=== PATIENT | female | born 1965 | race Caucasian/White ===

== ENCOUNTER 2018-01-17 11:14 | Emergency (ER) | payer BC ==
[~2018-01-17] VITALS: Ht 172.7 cm; Wt 70.0 kg
[2018-01-17 11:31] VITALS: BP 129/89; PULSE 88; RESP 16; TEMP 99.2; O2SAT 97
[2018-01-17] MEDS ORDERED: SODIUM CHLOR 0.9% 1000 ML INJ 1,000 ML IV SCH (11:52)
[2018-01-17] MEDS ORDERED: ONDANSETRON HCL 4 MG/2 ML VIAL IVP ONE (12:00)
[2018-01-17] MEDS ORDERED: KETOROLAC TROMETHAMINE 30 MG/ML (IVP) VIAL IVP ONE (12:00)
[2018-01-17] MEDS ORDERED: SODIUM CHLORIDE 0.9% FLUSH 10 ML FLUSH IV FLUSH PRN (12:00)
--- NOTE | 2018-01-17 12:19 | PD ---
HPI Chief Complaint: Abdominal Pain Time Seen by Provider: 11:46 Travel History International Travel<30 days: No Contact w/Intl Traveler<30days: No Traveled to known affect area: No History of Present Illness HPI Patient states that over the past month she has had is epigastric region discomfort, that after onset and radiates throughout her entire abdomen. Patient states that associated with this epigastric area pain, she develops nausea and vomiting helps to relieve her pain. Patient denies any aggravating factors. Patient also denies any associated factors such as fever, rash, headache, neck pain, chest pain, flank pain, cough, runny nose, or sore throat. No primary care Patient states allergy to penicillin amoxicillin, she developed hives to it Past medical history significant for PFSH Past Medical History ?: Not LMP: KATHIE Menopausal: Yes Past Surgical History Section: Yes Tonsillectomy: Yes Social History Alcohol Use: No Tobacco Use: Yes Substance Use: No Allergies-Medications (Allergen,Severity, Reaction): Coded Allergies: amoxicillin (Unverified Allergy, Severe, 01/17/18) penicillin G (Unverified Allergy, Severe, 01/17/18) Reported Meds & Prescriptions Reported Meds & Active Scripts Active No Active Prescriptions or Reported Medications Review of Systems General / Constitutional: No: Fever Eyes: No: Visual changes HENT: No: Headaches Cardiovascular: No: Chest Pain or Discomfort Respiratory: No: Shortness of Breath Gastrointestinal: Positive: Nausea, Abdominal Pain Genitourinary: No: Dysuria Musculoskeletal: No: Pain Skin: No Rash Neurologic: No: Weakness Psychiatric: No: Depression Endocrine: No: Polydipsia Hematologic/Lymphatic: No: Easy Bruising Physical Exam Narrative GENERAL: SKIN: Warm and dry. HEAD: Atraumatic. Normocephalic. EYES: Pupils equal and round. No scleral icterus. No injection or drainage. ENT: No nasal bleeding or discharge. Mucous membranes pink and moist. NECK: Trachea midline. No JVD. CARDIOVASCULAR: Regular rate and rhythm. RESPIRATORY: No accessory muscle use. Clear to auscultation. Breath sounds equal bilaterally. GASTROINTESTINAL: Abdomen soft, non-tender, nondistended. mild epigastric ttpercussion, but no rigidity/rebound/guarding MUSCULOSKELETAL: Extremities without clubbing, cyanosis, or edema. No obvious deformities. NEUROLOGICAL: Awake and alert. No obvious cranial nerve deficits. Motor grossly within normal limits. Five out of 5 muscle strength in the arms and legs. Normal speech. PSYCHIATRIC: Appropriate mood and affect; insight and judgment normal. Data Data Last Documented VS Vital Signs Date Time Temp Pulse Resp B/P (MAP) Pulse Ox O2 Delivery O2 Flow Rate FiO2 01/17/18 16:16 60 18 101/59 (73) 95 01/17/18 11:31 99.2 Orders Orders Complete Blood Count With Diff (01/17/18 11:52) Comprehensive Metabolic Panel (01/17/18 11:52) Lipase (01/17/18 11:52) Urinalysis - C+S If Indicated (01/17/18 11:52) Ct Abd/Pel W/O Iv Contrast (01/17/18 11:52) Iv Access Insert/Monitor (01/17/18 11:52) Ecg Monitoring (01/17/18 11:52) Oximetry (01/17/18 11:52) NPO (01/17/18 11:52) Ondansetron Inj (Zofran Inj) (01/17/18 12:00) Sodium Chlor 0.9% 1000 Ml Inj (Ns 1000 M (01/17/18 11:52) Sodium Chloride 0.9% Flush (Ns Flush) (01/17/18 12:00) Ketorolac Inj (Toradol Inj) (01/17/18 12:00) Labs Laboratory Tests Test 01/17/18 12:09 White Blood Count 12.3 TH/MM3 Red Blood Count 5.52 MIL/MM3 Hemoglobin 16.5 GM/DL Hematocrit 48.0 % Mean Corpuscular Volume 86.9 FL Mean Corpuscular Hemoglobin 29.9 PG Mean Corpuscular Hemoglobin Concent 34.4 % Red Cell Distribution Width 12.5 % Platelet Count 289 TH/MM3 Mean Platelet Volume 7.7 FL Neutrophils (%) (Auto) 72.4 % Lymphocytes (%) (Auto) 19.3 % Monocytes (%) (Auto) 4.5 % Eosinophils (%) (Auto) 3.1 % Basophils (%) (Auto) 0.7 % Neutrophils # (Auto) 8.9 TH/MM3 Lymphocytes # (Auto) 2.4 TH/MM3 Monocytes # (Auto) 0.6 TH/MM3 Eosinophils # (Auto) 0.4 TH/MM3 Basophils # (Auto) 0.1 TH/MM3 CBC Comment DIFF FINAL Differential Comment Urine Color YELLOW Urine Turbidity CLEAR Urine pH 6.0 Urine Specific [place] 1.014 Urine Protein NEG mg/dL Urine Glucose (UA) NEG mg/dL Urine Ketones NEG mg/dL Urine Occult Blood SMALL Urine Nitrite NEG Urine Bilirubin NEG Urine Urobilinogen LESS THAN 2.0 MG/DL Urine Leukocyte Esterase NEG Urine RBC 3 /hpf Urine WBC LESS THAN 1 /hpf Urine Squamous Epithelial Cells 2 /hpf Urine Mucus FEW /lpf Microscopic Urinalysis Comment CULT NOT INDICATED Blood Urea Nitrogen 8 MG/DL Creatinine 0.65 MG/DL Random Glucose 104 MG/DL Total Protein 7.3 GM/DL Albumin 3.8 GM/DL Calcium Level 9.1 MG/DL Alkaline Phosphatase 87 U/L Aspartate Amino Transf (AST/SGOT) 18 U/L Alanine Aminotransferase (ALT/SGPT) 22 U/L Total Bilirubin 0.5 MG/DL Sodium Level 138 MEQ/L Potassium Level 3.9 MEQ/L Chloride Level 107 MEQ/L Carbon Dioxide Level 23.0 MEQ/L Anion Gap 8 MEQ/L Estimat Glomerular Filtration Rate 95 ML/MIN Lipase 124 U/L [facility] Medical Decision Making Medical Screen Exam Complete: Yes Emergency Medical Condition: Yes Medical Record Reviewed: Yes Differential Diagnosis Gastroenteritis versus radiculitis versus colitis versus bronchitis versus hepatitis Narrative Course CBC shows mild leukocytosis with mild left shift No evidence of anemia and normal platelet count. Electrolytes are all within normal limits normal kidney liver and pancreatic functions CT shows evidence significant for enteritis, there is no evidence of any small bowel obstruction at this point. Diagnosis Primary Impression: Enteritis Referrals: [facility] Patient Instructions: Enteritis (ED), Full Liquid Diet (DC), General Instructions Scripts Tramadol (Ultram) 50 Mg Tab 50 MG PO Q6H Y for PAIN, #14 TAB 0 Refills Prov: Michi Peter MD 01/17/18 Ondansetron Odt (Zofran Odt) 4 Mg Tab 4 MG SL Q8HR Y for Nausea/Vomiting, #15 TAB 0 Refills Prov: Michi Peter MD 01/17/18 Metronidazole (Flagyl) 500 Mg Tab 500 MG PO TID for Infection for 10 Days, #30 TAB 0 Refills Prov: Michi Peter MD 01/17/18 Ciprofloxacin (Cipro) 500 Mg Tab 500 MG PO BID for Infection for 7 Days, #14 TAB 0 Refills Prov: Michi Peter MD 01/17/18 Disposition: 01 DISCHARGE HOME Condition: Stable Michi Peter MD Jan 17, 2018 12:19
[2018-01-17 12:25] LABS: AUTOMATED NEUTROPHIL # 8.9 TH/MM3 (1.8-7.7); BASOPHIL # 0.1 TH/MM3 (0-0.2); BASOPHIL % 0.7 % (0.0-2.0); EOSINOPHIL # 0.4 TH/MM3 (0-0.4); EOSINOPHIL % 3.1 % (0.0-4.0); HEMOGLOBIN 16.5 GM/DL (11.6-15.3); LYMPH % 19.3 % (9.0-44.0); LYMPHOCYTE # 2.4 TH/MM3 (1.0-4.8); MEAN CELL VOLUME 86.9 FL (80.0-100.0); MEAN CORPUSCULAR HEMOGLOBIN 29.9 PG (27.0-34.0); MEAN CORPUSCULAR HGB CONC 34.4 % (32.0-36.0); MEAN PLATELET VOLUME 7.7 FL (7.0-11.0); MONO % 4.5 % (0.0-8.0); MONOCYTE # 0.6 TH/MM3 (0-0.9); NEUT % 72.4 % (16.0-70.0); PLATELET COUNT 289 TH/MM3 (150-450); RED BLOOD COUNT 5.52 MIL/MM3 (4.00-5.30); RED CELL DISTRIBUTION WIDTH 12.5 % (11.6-17.2); WHITE BLOOD COUNT 12.3 TH/MM3 (4.0-11.0)
[2018-01-17 12:30] LABS: BILIRUBIN, URINE NEG (NEG); BLOOD, URINE SMALL (NEG); GLUCOSE,URINE NEG (NEG); KETONE, URINE NEG (NEG); MUCUS URINE FEW /lpf (OCC); NITRITE,URINE NEG (NEG); SQUAMOUS EPITHELIAL CELL URINE 2 /hpf (0-5); URINE COLOR YELLOW (YELLW/STRAW); URINE LEUKOCYTE ESTERASE NEG (NEG)
[2018-01-17 12:49] LABS: ALBUMIN 3.8 GM/DL (3.4-5.0); AST (GOT) 18 U/L (15-37); BLOOD UREA NITROGEN 8 MG/DL (7-18); CALCIUM 9.1 MG/DL (8.5-10.1); CHLORIDE 107 MEQ/L (98-107); CREATININE 0.65 MG/DL (0.50-1.00); GLOMERULAR FILTRATION RATE 95 ML/MIN (>89); GLUCOSE,RANDOM 104 MG/DL (74-106); SODIUM (NA) 138 MEQ/L (136-145)
[2018-01-17 12:50] LABS: ALT (GPT) 22 U/L (10-53)
[2018-01-17 12:53] LABS: ALKALINE PHOSPHATASE 87 U/L (45-117); TOTAL BILIRUBIN ADULT 0.5 MG/DL (0.2-1.0); TOTAL PROTEIN 7.3 GM/DL (6.4-8.2)
--- NOTE | 2018-01-17 13:02 | RADRPT ---
EXAM DATE/TIME: 01/17/2018 12:25 [place] COMPARISON: No previous studies available for comparison. INDICATIONS : Abdomen pain,eppigastic moving down to umbilical ORAL CONTRAST: No oral contrast ingested. RADIATION DOSE: 6.75 CTDIvol (mGy) MEDICAL HISTORY : None SURGICAL HISTORY : section. ENCOUNTER: Initial ACUITY: 1 day PAIN SCALE: 8/10 LOCATION: Abdomen TECHNIQUE: Volumetric scanning of the abdomen and pelvis was performed. Using automated exposure control and ad justment of the mA and/or kV according to patient size, radiation dose was kept as low as reasonably achievable to obtain optimal diagnostic quality images. DICOM format image data is available electro nically for review and comparison. FINDINGS: LOWER LUNGS: The visualized lower lungs are clear. LIVER: Homogeneous density without lesion. There is no dilation of the biliary tree. No calcified gallston es. SPLEEN: Normal size without lesion. PANCREAS: Within normal limits. KIDNEYS: 4.2 x 4.3 cm cyst in the anterior mid right kidney. The kidneys are otherwise symmetrical in size wit hout radiopaque renal calculi or hydronephrosis. ADRENAL GLANDS: Within normal limits. VASCULAR: There is no aortic aneurysm. BOWEL/MESENTERY: There are several slightly prominent ileal loops with diffuse wall thickening and surrounding inflamm atory stranding. No definite transition point is noted. The distal and terminal ileum are decompresse d. More proximally, visual loops are not significantly dilated and stomach is decompressed. There is no pneumatosis or free air. Smaller free fluid is noted in the deep pelvis. ABDOMINAL WALL: Within normal limits. RETROPERITONEUM: There is no lymphadenopathy. BLADDER: No wall thickening or mass. REPRODUCTIVE: Within normal limits. INGUINAL: There is no lymphadenopathy or hernia. MUSCULOSKELETAL: Within normal limits for patient age. CONCLUSION: 1. Several slightly prominent ileal loops with diffuse wall thickening and surrounding inflammatory c hange without definite transition point. The more distal and proximal bowel loops are not significant ly dilated. Findings are most consistent with inflammatory bowel disease/enteritis. Developing closed -loop obstruction is felt to be less likely. Clinical correlation is recommended. 2. Small amount of free fluid in the pelvis. Santana Butler MD on January 17, 2018 at 12:52 Board Certified Radiologist. This report was verified electronically.
[2018-01-17 16:16] VITALS: BP 101/59; PULSE 60; RESP 18; O2SAT 95
[2018-01-17] MEDS ORDERED: TRAM50 PO (16:34)
[2018-01-17] MEDS ORDERED: ZOFR4TAB3 SL (16:34)
[2018-01-17] MEDS ORDERED: CIPR-9 PO (16:34)
[2018-01-17] MEDS ORDERED: METR-1 PO (16:34)
== END 2018-01-17 21:25 | disposition home or self-care (01) ==
LOC: NEPD 11:14
DX: K52.9 Noninfective gastroenteritis and colitis, unspecified (principal); Z72.0 Tobacco use
CPT/HCPCS: 74176; 80053; 81001; 83690; 85025; 96374; 96375; 99284; J1885; J2405; J7030